=== PATIENT | female | born 1980 | race Caucasian/White ===

== ENCOUNTER 2018-07-16 19:22 | Emergency (ER) | payer OTHER, SELFPAY ==
[2018-07-16 19:29] VITALS: BP 103/72; PULSE 94; RESP 18; TEMP 37.2; O2SAT 99
--- NOTE | 2018-07-16 20:30 | DI.RAD.S_ITS ---
PROCEDURE: XR FOOT LT MIN 3V INDICATIONS: something fell on foot TECHNIQUE: 3 views of the foot were acquired. COMPARISON: None. FINDINGS: Bones: No fractures or dislocations. No suspicious bony lesions. Mild degenerative change at the first metatarsophalangeal joint. Soft tissues: No tibiotalar joint effusion. Achilles tendon appears normal. IMPRESSION: No acute fracture or dislocation of the left foot identified. Consider followup left foot radiographs in 7-10 days if there is continued clinical concern for fracture. Dictated by: Navi Stevens M.D. on 07/16/2018 at 21:41 Approved by: Navi Stevens M.D. on 07/16/2018 at 21:44
--- NOTE | 2018-07-16 21:21 | ED.LOWEXIN ---
HPI - Extremity Injury (Lower) <MANAS Estes - Last Filed: 07/16/18 22:56> General Chief Complaint: Extremity Injury, Lower Stated Complaint: LEFT FOOT INJURY Time Seen by Provider: 07/16/18 20:40 Source: patient Mode of arrival: ambulatory Limitations: no limitations History of Present Illness HPI Narrative: Patient presents with chief complaint of left foot pain. She dropped a 25 lb baking tray on her foot last Friday. She states she has been resting and icing and elevating, but her pain is not improving. She denies any numbness or tingling in her foot. She has been using [id number] medication as needed for the pain. She would like an x-ray to evaluate if it is broken. Related Data Home Medications Medication Instructions Recorded Confirmed [BULK POWDER] PO PRN PRN #0 01/13/18 Allergies Allergy/AdvReac Type Severity Reaction Status Date / Time morphine [MORPHINE] Allergy Intermediate Unverified 02/25/18 12:20 sumatriptan [From IMITREX] Allergy Intermediate Unverified 02/25/18 12:20 Review of Systems <RENETTA Estes - Last Filed: 07/16/18 22:56> Review of Systems GENERAL: Denies chills, fatigue, malaise, fever, sweats. HEENT: Denies sinus pain, ear pain, sore throat, difficulty swallowing, dizziness. RESPIRATORY: Denies dyspnea, cough, wheezing, hemoptysis, sputum. CARDIOVASCULAR: Denies chest pain, palpitations, orthopnea, edema, GASTROINTESTINAL: Denies nausea, vomiting, abdominal pain, diarrhea, constipation, melena. : Denies dysuria, frequency, incontinence, hematuria, urinary retention. MUSCULOSKELETAL: See HPI SKIN: Denies rash, skin lesions, or other NEUROLOGIC: Denies weakness, headache, numbness, change in speech, confusion, seizures, incoordination. PSYCHIATRIC: No concerning psychosocial issues. 12 point review of systems is negative except for those stated above Exam <RENETTA Estes - Last Filed: 07/16/18 22:56> Narrative Exam Narrative: GENERAL: This is a well-nourished, well-developed patient, in no acute distress lying on stretcher. HEAD: Atraumatic. Normocephalic. No temporal or scalp tenderness. EYES: Pupils equal round and reactive. Extraocular motions intact. No scleral icterus. No injection or drainage. ENT: Nose without bleeding, purulent drainage or septal hematoma. Throat without erythema, tonsillar hypertrophy or exudate. Uvula midline. Airway patent. NECK: Trachea midline. No JVD or lymphadenopathy. Supple, nontender, no meningeal signs. CARDIOVASCULAR: Regular rate and rhythm without murmurs, gallops, or rubs. RESPIRATORY: Clear to auscultation. Breath sounds equal bilaterally. No wheezes, rales, or rhonchi. No cough on exam GASTROINTESTINAL: Abdomen soft, non-tender, nondistended. No hepato-splenomegaly, or palpable masses. No guarding. EXTREMITIES: Left foot pain to palpation over the dorsal aspect by navicular and 1st metatarsal. Patient has full range of motion of ankle. Decreased range of motion with toes. Positive pedal pulses left foot. Capillary refill less than 2 sec left foot. BACK: Nontender without deformity or crepitance. No flank tenderness. NEURO: AOx3. SKIN: No rash or erythema. Initial Vital Signs Initial Vital Signs: Vital Signs Temperature 98.9 F 07/16/18 19:29 Pulse Rate 94 H 07/16/18 19:29 Respiratory Rate 18 07/16/18 19:29 Blood Pressure 103/72 07/16/18 19:29 Pulse Oximetry 99 07/16/18 19:29 <Ajay Pandya DO - Last Filed: 07/16/18 23:40> Initial Vital Signs Initial Vital Signs: Vital Signs Temperature 98.9 F 07/16/18 19:29 Pulse Rate 94 H 07/16/18 19:29 Respiratory Rate 18 07/16/18 19:29 Blood Pressure 103/72 07/16/18 19:29 Pulse Oximetry 99 07/16/18 19:29 Course <MANAS Estes - Last Filed: 07/16/18 22:56> Orders Ordered: ED Orders 07/16/18 20:30 XR foot LT min 3V Stat Discontinued Medications Ketorolac Tromethamine (Toradol) 30 mg IM NOW ONE Stop: 07/16/18 21:53 Last Admin: 07/16/18 22:04 Dose: 30 mg Vital Signs - 8 hr 07/16/18 19:29 07/16/18 22:17 Temperature 98.9 F Pulse Rate 94 H 83 Respiratory Rate 18 17 Blood Pressure 103/72 Blood Pressure [Left Arm] 122/75 Pulse Oximetry 99 100 <Ajay Pandya DO - Last Filed: 07/16/18 23:40> Orders Ordered: ED Orders 07/16/18 20:30 XR foot LT min 3V Stat Discontinued Medications Ketorolac Tromethamine (Toradol) 30 mg IM NOW ONE Stop: 07/16/18 21:53 Last Admin: 07/16/18 22:04 Dose: 30 mg Vital Signs - 8 hr 07/16/18 19:29 07/16/18 22:17 Temperature 98.9 F Pulse Rate 94 H 83 Respiratory Rate 18 17 Blood Pressure 103/72 Blood Pressure [Left Arm] 122/75 Pulse Oximetry 99 100 MDM - Extremity Injury (Lower) <MANAS Estes - Last Filed: 07/16/18 22:56> Imaging Data left foot xray: Radiologist's impression: [address] [address] XRay Report Signed Patient: Joceline Lugo I MR#: [id number] : 1980 Acct:[id number] Age/Sex: 37 / F Date of Service: 07/16/18 Loc: ED Accession Number: [id number] Procedure: XR foot LT min 3V Ordering Provider: Shantell Collier PROCEDURE: XR FOOT LT MIN 3V INDICATIONS: something fell on foot TECHNIQUE: 3 views of the foot were acquired. COMPARISON: None. FINDINGS: Bones: No fractures or dislocations. No suspicious bony lesions. Mild degenerative change at the first metatarsophalangeal joint. Soft tissues: No tibiotalar joint effusion. Achilles tendon appears normal. IMPRESSION: No acute fracture or dislocation of the left foot identified. Consider followup left foot radiographs in 7-10 days if there is continued clinical concern for fracture. Dictated by: Navi Stevens M.D. on 07/16/2018 at 21:41 Approved by: Navi Stevens M.D. on 07/16/2018 at 21:44 [facility] Narrative Medical decision making narrative: Patient presented with chief complaint of foot pain after dropping a baking sheet on it last Friday. Her x-ray came back negative for any fracture. She was given a Toradol injection for pain. She was given an Chidi wrap for comfort. I did give her a few days off of work given the swelling and decreased range of motion noted. I instructed rest ice compression elevation. I discussed that she should follow up with primary care provider if worsening or no improvement as she may need repeat x-rays in the next 7-10 days. L and I paperwork was filled out. Patient no questions or concerns upon discharge. Discharge Plan Departure Patient Disposition: Home Clinical Impression: Contusion of foot, left Discharge Date/Time: 07/16/18 22:44 Interventions: ED Discharge Assessment Last Done: 07/16/18 22:24 Instructions: DI for Contusion, How To Perform RICE (Rest, Ice, Compress, Elevate), DI for Foot Pain Activity Restrictions/Additional Instructions: I have given you discharge instructions about a foot bruise. Your x-ray came back negative for a fracture at this time. I am giving a few days off work so he could rest. Please ice and keep using [id number] medications as needed for pain. Follow up with her primary care provider if not improved in a few days. Prescriptions: No Action [BULK POWDER] PO PRN PRNQty: 0 RF: 0 <Ajay Pandya DO - Last Filed: 07/16/18 23:40> [facility] Attending [facility] Attestation: I was immediately available in the department for consultation. Documentation has been reviewed. I agree with assessment and plan.
--- NOTE | 2018-07-16 21:24 | ED_ITS ---
HPI - Extremity Injury (Lower) <MANAS Estes - Last Filed: 07/16/18 22:56> General Chief Complaint: Extremity Injury, Lower Stated Complaint: LEFT FOOT INJURY Time Seen by Provider: 07/16/18 20:40 Source: patient Mode of arrival: ambulatory Limitations: no limitations History of Present Illness HPI Narrative: Patient presents with chief complaint of left foot pain. She dropped a 25 lb baking tray on her foot last Friday. She states she has been resting and icing and elevating, but her pain is not improving. She denies any numbness or tingling in her foot. She has been using [id number] medication as needed for the pain. She would like an x-ray to evaluate if it is broken. Related Data Home Medications Medication Instructions Recorded Confirmed [BULK POWDER] PO PRN PRN #0 01/13/18 Allergies Allergy/AdvReac Type Severity Reaction Status Date / Time morphine [MORPHINE] Allergy Intermediate Unverified 02/25/18 12:20 sumatriptan [From IMITREX] Allergy Intermediate Unverified 02/25/18 12:20 Review of Systems <RENETTA Estes - Last Filed: 07/16/18 22:56> Review of Systems GENERAL: Denies chills, fatigue, malaise, fever, sweats. HEENT: Denies sinus pain, ear pain, sore throat, difficulty swallowing, dizziness. RESPIRATORY: Denies dyspnea, cough, wheezing, hemoptysis, sputum. CARDIOVASCULAR: Denies chest pain, palpitations, orthopnea, edema, GASTROINTESTINAL: Denies nausea, vomiting, abdominal pain, diarrhea, constipation, melena. : Denies dysuria, frequency, incontinence, hematuria, urinary retention. MUSCULOSKELETAL: See HPI SKIN: Denies rash, skin lesions, or other NEUROLOGIC: Denies weakness, headache, numbness, change in speech, confusion, seizures, incoordination. PSYCHIATRIC: No concerning psychosocial issues. 12 point review of systems is negative except for those stated above Exam <RENETTA Estes - Last Filed: 07/16/18 22:56> Narrative Exam Narrative: GENERAL: This is a well-nourished, well-developed patient, in no acute distress lying on stretcher. HEAD: Atraumatic. Normocephalic. No temporal or scalp tenderness. EYES: Pupils equal round and reactive. Extraocular motions intact. No scleral icterus. No injection or drainage. ENT: Nose without bleeding, purulent drainage or septal hematoma. Throat without erythema, tonsillar hypertrophy or exudate. Uvula midline. Airway patent. NECK: Trachea midline. No JVD or lymphadenopathy. Supple, nontender, no meningeal signs. CARDIOVASCULAR: Regular rate and rhythm without murmurs, gallops, or rubs. RESPIRATORY: Clear to auscultation. Breath sounds equal bilaterally. No wheezes , rales, or rhonchi. No cough on exam GASTROINTESTINAL: Abdomen soft, non-tender, nondistended. No hepato-splenomegaly , or palpable masses. No guarding. EXTREMITIES: Left foot pain to palpation over the dorsal aspect by navicular and 1st metatarsal. Patient has full range of motion of ankle. Decreased range of motion with toes. Positive pedal pulses left foot. Capillary refill less than 2 sec left foot. BACK: Nontender without deformity or crepitance. No flank tenderness. NEURO: AOx3. SKIN: No rash or erythema. Initial Vital Signs Initial Vital Signs: Vital Signs Temperature 98.9 F 07/16/18 19:29 Pulse Rate 94 H 07/16/18 19:29 Respiratory Rate 18 07/16/18 19:29 Blood Pressure 103/72 07/16/18 19:29 Pulse Oximetry 99 07/16/18 19:29 <Ajay Pandya DO - Last Filed: 07/16/18 23:40> Initial Vital Signs Initial Vital Signs: Vital Signs Temperature 98.9 F 07/16/18 19:29 Pulse Rate 94 H 07/16/18 19:29 Respiratory Rate 18 07/16/18 19:29 Blood Pressure 103/72 07/16/18 19:29 Pulse Oximetry 99 07/16/18 19:29 Course <MANAS Estes - Last Filed: 07/16/18 22:56> Orders Ordered: ED Orders 07/16/18 20:30 XR foot LT min 3V Stat Discontinued Medications Ketorolac Tromethamine (Toradol) 30 mg IM NOW ONE Stop: 07/16/18 21:53 Last Admin: 07/16/18 22:04 Dose: 30 mg Vital Signs - 8 hr 07/16/18 19:29 07/16/18 22:17 Temperature 98.9 F Pulse Rate 94 H 83 Respiratory Rate 18 17 Blood Pressure 103/72 Blood Pressure [Left Arm] 122/75 Pulse Oximetry 99 100 <Ajay Pandya DO - Last Filed: 07/16/18 23:40> Orders Ordered: ED Orders 07/16/18 20:30 XR foot LT min 3V Stat Discontinued Medications Ketorolac Tromethamine (Toradol) 30 mg IM NOW ONE Stop: 07/16/18 21:53 Last Admin: 07/16/18 22:04 Dose: 30 mg Vital Signs - 8 hr 07/16/18 19:29 07/16/18 22:17 Temperature 98.9 F Pulse Rate 94 H 83 Respiratory Rate 18 17 Blood Pressure 103/72 Blood Pressure [Left Arm] 122/75 Pulse Oximetry 99 100 MDM - Extremity Injury (Lower) <MANAS Estes - Last Filed: 07/16/18 22:56> Imaging Data left foot xray: Radiologist's impression: [address] [address] XRay Report Signed Patient: Joceline Lugo I MR#: [id number] : 1980 Acct:[id number] Age/Sex: 37 / F Date of Service: 07/16/18 Loc: ED Accession Number: [id number] Procedure: XR foot LT min 3V Ordering Provider: Shantell Collier PROCEDURE: XR FOOT LT MIN 3V INDICATIONS: something fell on foot TECHNIQUE: 3 views of the foot were acquired. COMPARISON: None. FINDINGS: Bones: No fractures or dislocations. No suspicious bony lesions. Mild degenerative change at the first metatarsophalangeal joint. Soft tissues: No tibiotalar joint effusion. Achilles tendon appears normal. IMPRESSION: No acute fracture or dislocation of the left foot identified. Consider followup left foot radiographs in 7-10 days if there is continued clinical concern for fracture. Dictated by: Navi Stevens M.D. on 07/16/2018 at 21:41 Approved by: Navi Stevens M.D. on 07/16/2018 at 21:44 [facility] Narrative Medical decision making narrative: Patient presented with chief complaint of foot pain after dropping a baking sheet on it last Friday. Her x-ray came back negative for any fracture. She was given a Toradol injection for pain. She was given an Chidi wrap for comfort. I did give her a few days off of work given the swelling and decreased range of motion noted. I instructed rest ice compression elevation. I discussed that she should follow up with primary care provider if worsening or no improvement as she may need repeat x-rays in the next 7-10 days. L and I paperwork was filled out. Patient no questions or concerns upon discharge. Discharge Plan Departure Patient Disposition: Home Clinical Impression: Contusion of foot, left Discharge Date/Time: 07/16/18 22:44 Interventions: ED Discharge Assessment Last Done: 07/16/18 22:24 Instructions: DI for Contusion, How To Perform RICE (Rest, Ice, Compress, Elevate), DI for Foot Pain Activity Restrictions/Additional Instructions: I have given you discharge instructions about a foot bruise. Your x-ray came back negative for a fracture at this time. I am giving a few days off work so he could rest. Please ice and keep using [id number] medications as needed for pain. Follow up with her primary care provider if not improved in a few days. Prescriptions: No Action [BULK POWDER] PO PRN PRNQty: 0 RF: 0 <Ajay Pandya DO - Last Filed: 07/16/18 23:40> [facility] Attending [facility] Attestation: I was immediately available in the department for consultation. Documentation has been reviewed. I agree with assessment and plan.
[2018-07-16] MEDS: KETOROLAC 60 MG/2 ML VIAL 30 MG IM (22:04)
[2018-07-16 22:17] VITALS: BP 122/75; PULSE 83; RESP 17; O2SAT 100
== END 2018-07-16 22:44 | disposition home or self-care (01) ==
PROVIDERS: Emergency Provider Nurse Practitioner Family
DX: S90.32XA Contusion of left foot, initial encounter (principal); W20.8XXA Other cause of strike by thrown, projected or falling object, initial encounter; Y99.0 Civilian activity done for income or pay
CPT/HCPCS: 73630; 96372; 99282; 99283; J1885

== ENCOUNTER 2019-08-04 16:26 | Emergency (ER) | payer OTHER, SELFPAY ==
[2019-08-04 16:30] VITALS: BP 131/76; PULSE 75; RESP 22; TEMP 36.7; O2SAT 100
[2019-08-04 17:26] LABS: Add Manual Diff / Slide Review NO; Basophils Absolute Auto 0 /uL (0-100); Basophils Percent Auto 0.5 % (0-2); Eosinophils Absolute Auto 700 /uL (0-450); Eosinophils Percent Auto 7.5 % (2-4); Hematocrit 41.9 % (36-46); Hemoglobin 14.1 g/dL (12.0-16.0); Lymphocytes Absolute Auto 2300 /uL (1100-4500); Lymphocytes Percent Auto 25.6 % (25-40); Mean Corpuscular HGB Conc 33.5 % (30-36); Mean Corpuscular Hemoglobin 31.8 PG (26-34); Mean Corpuscular Volume 94.7 fL (80-100); Monocytes Absolute Auto 500 /uL (0-900); Neutrophils Absolute Auto 5500 /uL (1500-7000); Neutrophils Percent Auto 61.4 % (50-75); Platelet Count 227 X10^3/uL (150-400); Red Blood Cell Count 4.42 X10^6/uL (4.0-5.2); Red Cell Distribution Width 13.6 % (11.6-14.8)
[2019-08-04 17:40] LABS: Alanine Aminotransferase 16 IU/L (9-52); Albumin 4.3 g/dL (3.5-5.0); Albumin Globulin Ratio 1.6 (1.0-2.8); Alkaline Phosphatase 52 U/L (38-126); Aspartate Aminotransferase 22 IU/L (14-36); BUN Creatinine Ratio 18.3 (6-22); Bilirubin Total 0.3 mg/dL (0.2-1.3); Blood Urea Nitrogen 11 mg/dL (7-17); Calcium 9.4 mg/dL (8.4-10.2); Carbon Dioxide 23 mmol/L (22-32); Estimated Glomerular Filt Rate > 60.0 mL/min (>60); Ethanol (ETOH) < 10 mg/dL; Globulin 2.7 g/dL (1.7-4.1); Glucose 93 mg/dL (70-100); HEMOLYSIS < 15 (0-50)
[2019-08-04 17:41] LABS: Chloride 104 mmol/L (98-107); Sodium 139 mmol/L (137-145)
[2019-08-04 17:47] LABS: Urine Amphetamines Negative (Negative); Urine Barbiturates Negative (Negative); Urine Benzodiazepines Negative (Negative); Urine Cocaine Negative (Negative); Urine MDMA Negative (Negative); Urine Methadone Negative (Negative); Urine Methamphetamines Negative (Negative); Urine Morphine/Opi cutoff 2000 Negative (Negative); Urine Oxycodone Negative (Negative); Urine Phencyclidine Negative (Negative); Urine Tetrahydrocannabinol Positive (Negative); Urine Tricyclic Antidepressant Negative (Negative)
[2019-08-04 17:59] LABS: Potassium 3.6 mmol/L (3.4-5.1)
[2019-08-04 18:06] LABS: Pregnancy Test Serum,Qual Negative (Negative)
--- NOTE | 2019-08-04 18:29 | ED.PSYCH ---
HPI - Psych General Chief Complaint: Psychiatric Symptoms Stated Complaint: wants mental health eval Time Seen by Provider: 08/04/19 16:30 Source: patient Mode of arrival: ambulatory Limitations: no limitations History of Present Illness HPI Narrative: 38F with noncontributory medical history presents in tears stating that she needs a mental health evaluation. She denies any suicidal or homicidal ideation. She states she is able to care for herself without difficulty but that she is very upset, tearful and at times for might become a rational when she is very upset. She denies any significant history of the same. She carries no psychiatric diagnoses. She states she just found out that her is cheating on her and because he claimed that she became aggressive with him he was able to obtain full custody of the kids and have her removed from her home. She states she has a court order requiring mental health evaluation by the end of the month. complaint: feels depressed Onset (ago): day(s) Duration: constant History of same: No Relieving factors: none Exacerbating factors: other Context: significant life stressor Associated psychiatric symptoms: depression Associated symptoms: denies other symptoms Treatments prior to arrival: none Related Data Home Medications Medication Instructions Recorded Confirmed buspirone 5 mg PO TID PRN 08/04/19 08/04/19 hydroxyzine HCl 25 mg PO TID-QID PRN 08/04/19 08/04/19 Allergies Allergy/AdvReac Type Severity Reaction Status Date / Time morphine [MORPHINE] Allergy Intermediate Unverified 02/25/18 12:20 sumatriptan [From IMITREX] Allergy Intermediate Unverified 02/25/18 12:20 Review of Systems Constitutional Constitutional: Denies chills, Denies fatigue, Denies fever(s), Denies frequent falls, Denies lethargy and Denies weakness Eyes Eyes: Denies change in vision, Denies eye discharge, Denies irritation and Denies loss of vision ENT Ears, Nose, Mouth, and Throat: Denies change in voice, Denies dizziness, Denies neck pain, Denies sore throat and Denies throat swelling Cardiovascular Cardiovascular: Denies chest pain, Denies irregular heart rhythm, Denies lightheadedness, Denies palpitations, Denies dyspnea, Denies dyspnea on exertion and Denies orthopnea Respiratory Respiratory: Denies cough, Denies dyspnea, Denies dyspnea on exertion and Denies wheezing Gastrointestinal Gastrointestinal: Denies abdominal pain, Denies change in bowel habits, Denies diarrhea, Denies nausea and Denies vomiting Genitourinary Genitourinary: Denies hematuria, Denies flank pain, Denies urinary incontinence and Denies urinary urgency Musculoskeletal Musculoskeletal: Denies back pain, Denies muscle weakness, Denies neck pain, Denies numbness and Denies tingling Integumentary/Breasts Skin/Breast: Denies pruritus, Denies erythema, Denies rash and Denies wounds Neurologic Neurologic: Denies behavioral changes, Denies confusion, Denies dizziness, Denies frequent falls, Denies loss of vision, Denies numbness, Denies tingling and Denies weakness Psychiatric Psychiatric: Reports anxiety, Denies behavioral changes, Denies confusion, Reports depression, Denies homicidal ideation and Denies suicidal ideation Endocrine Endocrine: Denies fatigue, Denies flushing and Denies palpitations Hematologic/Lymphatic Hematologic/Lymphatic: Denies easy bruising Allergic/Immunologic Allergic/Immunologic: Denies urticaria, Denies throat swelling and Denies wheezing PFSH Social History Smoking Status: Current every day smoker alcohol intake: never Social History Smoking Status: Current every day smoker alcohol intake: never Exam Narrative Exam Narrative: GENERAL: [38] year old patient appears stated age. Well-nourished, well-developed patient, in mild distress. Tearful HEAD: Atraumatic. Normocephalic. EYES: Pupils equal round and reactive. Extraocular motions intact. No scleral icterus. No injection or drainage. ENT: Nose without bleeding, purulent drainage. Throat without erythema, tonsillar hypertrophy or exudate. Airway patent. NECK: Trachea midline. Non tender CARDIOVASCULAR: Regular rate and rhythm without murmurs, gallops, or rubs. RESPIRATORY: Clear to auscultation. Breath sounds equal bilaterally. No wheezes, rales, or rhonchi. GASTROINTESTINAL: Abdomen soft, non-tender, nondistended. EXTREMITIES: No edema or joint tenderness. BACK: Nontender without deformity or crepitance. No flank tenderness. NEURO: AOx3. SKIN: No rash or erythema of visible areas Initial Vital Signs Initial Vital Signs: Vital Signs Temperature 98.1 F 08/04/19 16:30 Pulse Rate 75 08/04/19 16:30 Respiratory Rate 22 08/04/19 16:30 Blood Pressure 131/76 08/04/19 16:30 Pulse Oximetry 100 08/04/19 16:30 Course Orders Ordered: ED Orders 08/04/19 17:15 Complete Blood Count AUTO DIFF Stat Comprehensive Metabolic Panel Stat Ethanol (ETOH) Stat Test Serum,Qual Stat Thyroid Stimulating Hormone Stat 08/04/19 17:25 Urine Drug Screen, Rapid Stat Vital Signs Vital signs: Vital Signs - 8 hr 08/04/19 16:30 Temperature 98.1 F Pulse Rate 75 Respiratory Rate 22 Blood Pressure 131/76 Pulse Oximetry 100 MDM - Psych Lab Data Result diagrams: 08/04/19 17:15 08/04/19 17:15 Labs: Lab Results 08/04/19 08/04/19 08/04/19 Range/Units 17:15 17:15 17:15 WBC 9.0 (4.5-11.0) X10^3/uL RBC 4.42 (4.0-5.2) X10^6/uL Hgb 14.1 (12.0-16.0) g/dL Hct 41.9 (36-46) % MCV 94.7 (80-100) fL MCH 31.8 (26-34) PG MCHC 33.5 (30-36) % RDW 13.6 (11.6-14.8) % Plt Count 227 (150-400) X10^3/uL Neut % (Auto) 61.4 (50-75) % Lymph % (Auto) 25.6 (25-40) % [place] % (Auto) 5.0 (3-14) % Eos % (Auto) 7.5 H (2-4) % Baso % (Auto) 0.5 (0-2) % Neut # (Auto) 5500 (2005-4452) /uL Lymph # (Auto) 2300 (2886-8578) /uL [place] # (Auto) 500 (0-900) /uL Eos # (Auto) 700 H (0-450) /uL Baso # (Auto) 0 (0-100) /uL Sodium 139 (137-145) mmol/L Potassium 3.6 (3.4-5.1) mmol/L Chloride 104 (98-107) mmol/L Carbon Dioxide 23 (22-32) mmol/L BUN 11 (7-17) mg/dL Creatinine 0.60 (0.52-1.04) mg/dL Estimated GFR > 60.0 (>60) mL/min BUN/Creatinine Ratio 18.3 (6-22) Glucose 93 (70-100) mg/dL Calcium 9.4 (8.4-10.2) mg/dL Total Bilirubin 0.3 (0.2-1.3) mg/dL AST 22 (14-36) IU/L ALT 16 (9-52) IU/L Alkaline Phosphatase 52 (38-126) U/L Total Protein 7.0 (6.3-8.2) g/dL Albumin 4.3 (3.5-5.0) g/dL Globulin 2.7 (1.7-4.1) g/dL Albumin/Globulin Ratio 1.6 (1.0-2.8) TSH 5.09 H (0.47-4.68) uIU/mL Serum , Qual (Negative) Urine Opiates Screen (Negative) Ur Oxycodone Screen (Negative) Urine Methadone Screen (Negative) Ur Barbiturates Screen (Negative) U Tricyclic Antidepress (Negative) Ur Phencyclidine Scrn (Negative) Ur Amphetamines Screen (Negative) U Methamphetamines Scrn (Negative) Ur MDMA Scrn (Ecstasy) (Negative) U Benzodiazepines Scrn (Negative) Urine Cocaine Screen (Negative) U Marijuana (THC) Screen (Negative) Ethyl Alcohol < 10 ( - 10) mg/dL 08/04/19 08/04/19 Range/Units 17:15 17:25 WBC (4.5-11.0) X10^3/uL RBC (4.0-5.2) X10^6/uL Hgb (12.0-16.0) g/dL Hct (36-46) % MCV (80-100) fL MCH (26-34) PG MCHC (30-36) % RDW (11.6-14.8) % Plt Count (150-400) X10^3/uL Neut % (Auto) (50-75) % Lymph % (Auto) (25-40) % [place] % (Auto) (3-14) % Eos % (Auto) (2-4) % Baso % (Auto) (0-2) % Neut # (Auto) (7770-8562) /uL Lymph # (Auto) (0612-2764) /uL [place] # (Auto) (0-900) /uL Eos # (Auto) (0-450) /uL Baso # (Auto) (0-100) /uL Sodium (137-145) mmol/L Potassium (3.4-5.1) mmol/L Chloride (98-107) mmol/L Carbon Dioxide (22-32) mmol/L BUN (7-17) mg/dL Creatinine (0.52-1.04) mg/dL Estimated GFR (>60) mL/min BUN/Creatinine Ratio (6-22) Glucose (70-100) mg/dL Calcium (8.4-10.2) mg/dL Total Bilirubin (0.2-1.3) mg/dL AST (14-36) IU/L ALT (9-52) IU/L Alkaline Phosphatase (38-126) U/L Total Protein (6.3-8.2) g/dL Albumin (3.5-5.0) g/dL Globulin (1.7-4.1) g/dL Albumin/Globulin Ratio (1.0-2.8) TSH (0.47-4.68) uIU/mL Serum , Qual Negative (Negative) Urine Opiates Screen Negative (Negative) Ur Oxycodone Screen Negative (Negative) Urine Methadone Screen Negative (Negative) Ur Barbiturates Screen Negative (Negative) U Tricyclic Antidepress Negative (Negative) Ur Phencyclidine Scrn Negative (Negative) Ur Amphetamines Screen Negative (Negative) U Methamphetamines Scrn Negative (Negative) Ur MDMA Scrn (Ecstasy) Negative (Negative) U Benzodiazepines Scrn Negative (Negative) Urine Cocaine Screen Negative (Negative) U Marijuana (THC) Screen Positive H (Negative) Ethyl Alcohol ( - 10) mg/dL Urine Dip Bedside Urine Glucose Negative Bedside Urine Bilirubin - Negative Bedside Urine Ketone - Negative Urine Specific [place] 1.010 Bedside Urine Occult Blood - Negative Bedside Urine pH 6.5 Bedside Urine Protein - Negative Bedside Urine Urobilinogen - Negative Bedside Urine Nitrite - Negative Bedside Urine Leukocytes +/- 15 Esterase MDM Narrative Medical decision making narrative: 38-year-old female denies suicidal ideation, homicidal ideation and is not gravely disabled. She is requesting help and has been medically cleared. I have spoken with [facility] and they will reach out to her tonight at 9:00 p.m.. Patient has been given return precautions and has questions answered to her satisfaction Discharge Plan Departure Patient Disposition: Home Clinical Impression: Depression Qualifiers: Depression Type: unspecified Qualified Code(s): F32.9 - Major depressive disorder, single episode, unspecified Discharge Date/Time: 08/04/19 18:55 Activity Restrictions/Additional Instructions: *You have been diagnosed with [acute depression] *What to do: * continue to take medications as directed *A member of [facility] will call you tonight at about 9pm *Return to ER if you should have any new, worsening or concerning symptoms Prescriptions: No Action buspirone 5 mg Tablet 5 mg PO TID PRN (Reason: Anxiety) RF: 0 hydroxyzine HCl 25 mg Tablet 25 mg PO TID-QID PRN (Reason: Anxiety) RF: 0 Referrals: [facility] [Outside]
[2019-08-04 18:33] LABS: Thyroid Stimulating Hormone 5.09 uIU/mL (0.47-4.68)
[2019-08-04 18:49] VITALS: BP 122/70; PULSE 78; RESP 18; O2SAT 98
== END 2019-08-04 18:55 | disposition home or self-care (01) ==
PROVIDERS: Emergency Provider Emergency Medicine
DX: F32.9 Major depressive disorder, single episode, unspecified (principal)
CPT/HCPCS: 36415; 80053; 80305; 80320; 81003; 84443; 84703; 85025; 99282; 99283